=== PATIENT | female | born 1945 | race African-American/Black ===

== ENCOUNTER 2019-08-28 09:33 | Emergency (ER) | payer OTHER ==
[~2019-08-28] VITALS: Ht 160 cm; Wt 76.2 kg
[~2019-08-28 09:33] MED LIST: COZAAR50 MG; GLIMEPIRIDE4 MG; ZANTAC 7575 MG
[2019-08-28] MEDS ORDERED: OMEPRAZOLE-BIC1 EAC1 (09:52)
[2019-08-28] MEDS ORDERED: SYMBICORT 16010.2 GM (09:53)
[2019-08-28] MEDS ORDERED: FORTAMET500 MG (09:54)
[2019-08-28] MEDS ORDERED: SENOKOT-S TABL1 EACH (09:55)
[2019-08-28] MEDS ORDERED: CARAFATE1 GM/10 ML (09:57)
[2019-08-28] MEDS ORDERED: CARAFATE1 GM PO (13:36)
[2019-08-28] MEDS ORDERED: PEPCID AC20 MG PO (13:44)
== END 2019-08-28 13:54 | disposition home or self-care (01) ==
LOC: ER 09:33
DX: K29.60 Other gastritis without bleeding (principal); Z03.818 Encounter for observation for suspected exposure to other biological agents ruled out; R10.13 Epigastric pain; R11.0 Nausea